=== PATIENT | female | born 1945 | race Caucasian/White ===

== ENCOUNTER 2019-01-25 17:08 | Emergency (ER) | payer MEDICARE, OTHER ==
[~2019-01-25] VITALS: Wt 89.0 kg
[~2019-01-25 17:08] MED LIST: IBUP-1561 PO; ONDA4TAB14 PO
[2019-01-25] MEDS ORDERED: ONDANSETRON 4 MG INJ IV STA (19:45)
[2019-01-25] MEDS ORDERED: SOD CHLORIDE 0.9% 500 ML IV ONE (20:00)
[2019-01-25 22:09] VITALS: BP 122/58; PULSE 77; RESP 16
== END 2019-01-25 22:09 | disposition home or self-care (01) ==
LOC: FTE 17:08
DX: E86.0 Dehydration (principal); E11.9 Type 2 diabetes mellitus without complications; I10 Essential (primary) hypertension; E03.9 Hypothyroidism, unspecified; D69.6 Thrombocytopenia, unspecified; R94.5 Abnormal results of liver function studies; R11.10 Vomiting, unspecified
CPT/HCPCS: 36415; 71045; 74176; 80053; 81003; 83690; 85025; 96374; 99285; J2405; J7040